=== PATIENT | male | born 2000 | race Caucasian/White ===

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

== ENCOUNTER 2018-12-25 19:52 | Emergency (ER) | payer MEDICAID, OTHER ==
[~2018-12-25] VITALS: Ht 175.3 cm; Wt 72.6 kg
[2018-12-25 19:52] VITALS: BP 148/73
== END 2018-12-25 20:23 | disposition home or self-care (01) ==
LOC: ER 19:54
DX: H92.02 Otalgia, left ear (principal)